=== PATIENT | male | born 1930 | race Caucasian/White ===

== ENCOUNTER 2016-07-06 15:57 | Emergency (ER) | payer MEDICARE, BC ==
[2016-07-06 16:01] VITALS: BP 152/76
--- NOTE | 2016-07-06 16:45 | EDM.PDOC ---
ED HPI GENERAL MEDICAL PROBLEM - General Chief Complaint: Gastrointestinal Problem Stated Complaint: bowel issue Time Seen by Provider: 07/06/16 16:22 Source of Information: Reports: Patient, Family History Limitations: Reports: Altered Mental Status (dementia) - History of Present Illness INITIAL COMMENTS - FREE TEXT/NARRATIVE: This patient is an 85 year old male with dementia. reports patient earlier today said he had to have a BM. She reports patient sat on the toilet but kept wiping without BM with smears on toilet paper. She reports patient says he had to go, but could not. She reports giving him to rectal suppositories. She reprots patient having BM oozing, but not BM. Patient denies having mason, dizziness, n, v, d, f, abd pain, cp, or any pain. Onset: Today Onset Date: 07/06/16 Severity: Mild Improves with: Reports: None Worsens with: Reports: None Associated Symptoms: Denies: Confusion, Chest Pain, Cough, cough w sputum, Diaphoresis, Fever/Chills, Headaches, Loss of Appetite, Malaise, Nausea/Vomiting , Rash, Seizure, Shortness of Breath, Syncope, Weakness Treatments CERTIFIED SURGICAL TECH/FIRST ASSISTANT: Reports: Other Medication(s) - Related Data Allergies Allergy/AdvReac Type Severity Reaction Status Date / Time No Known Allergies Allergy Verified 07/06/16 16:01 Home Meds: Home Meds Ascorbic Acid [Vitamin C] 1 tab PO DAILY 12/12/15 [History] Aspirin [Low Dose Aspirin EC] 81 mg PO DAILY 12/12/15 [History] Cholecalciferol (Vitamin D3) [Vitamin D3] 5,000 unit PO DAILY 12/12/15 [History] Colestipol HCl 1 gm PO BID 12/12/15 [History] Cyanocobalamin (Vitamin B12) [Vitamin B12] 1 tab PO DAILY 12/12/15 [History] Donepezil HCl [Aricept] 10 mg PO BEDTIME 12/12/15 [History] Levothyroxine Sodium [Synthroid] 125 mcg PO DAILY 12/12/15 [History] Losartan [Cozaar] 50 mg PO DAILY 12/12/15 [History] Magnesium 250 mg PO DAILY 12/12/15 [History] Oxybutynin Chloride 5 mg PO BID 12/12/15 [History] Potassium Chloride 10 meq PO BID 12/12/15 [History] Sertraline HCl [Sertraline HCl] 50 mg PO DAILY 12/12/15 [History] atorvaSTATin Calcium [Atorvastatin Calcium] 10 mg PO DAILY 12/12/15 [History] Past Medical History HEENT History: Reports: Cataract Cardiovascular History: Reports: High Cholesterol, Hypertension Respiratory History: Reports: Asthma Genitourinary History: Reports: Other (See Below) Other Genitourinary History: urinary frequency at noc Musculoskeletal History: Reports: Back Pain, Chronic, Fracture, Osteoarthritis Neurological History: Reports: Other (See Below) Other Neuro History: dementia Psychiatric History: Reports: Dementia, Depression Endocrine/Metabolic History: Reports: Hypothyroidism Oncologic (Cancer) History: Reports: Basal Cell Carcinoma - Past Surgical History HEENT Surgical History: Reports: Cataract Surgery Cardiovascular Surgical History: Reports: None Respiratory Surgical History: Reports: None Male Surgical History: Reports: None Endocrine Surgical History: Reports: None Musculoskeletal Surgical History: Reports: Other (See Below) Other Musculoskeletal Surgeries/Procedures:: hip surgery; hip fracture 2 years ago Social & Family History - Tobacco Use Smoking Status *Q: Never Smoker - Caffeine Use Caffeine Use: Reports: Coffee ED ROS GENERAL - Review of Systems Review Of Systems: See Below Constitutional: Reports: No Symptoms HEENT: Reports: No Symptoms Respiratory: Reports: No Symptoms Cardiovascular: Reports: No Symptoms Endocrine: Reports: No Symptoms GI/Abdominal: Reports: Constipation, Other (stool oozing, no BM. ) : Reports: No Symptoms Musculoskeletal: Reports: No Symptoms Skin: Reports: No Symptoms Neurological: Reports: No Symptoms Psychiatric: Reports: No Symptoms Hematologic/Lymphatic: Reports: No Symptoms Immunologic: Reports: No Symptoms ED EXAM, GI/ABD - Physical Exam Exam: See Below Exam Limited By: No Limitations General Appearance: Alert, WD/WN, No Apparent Distress Eyes: Bilateral: Normal Appearance Ears: Normal External Exam, Normal Canal, Hearing Grossly Normal, Normal TMs Nose: Normal Inspection, Normal Mucosa, No Blood Throat/Mouth: Normal Inspection, Normal Lips, Normal Teeth, Normal Gums, Normal Oropharynx, Normal Voice, No Airway Compromise Head: Atraumatic, Normocephalic Neck: Normal Inspection, Supple, Non-Tender, Full Range of Motion Respiratory/Chest: No Respiratory Distress, Lungs Clear, Normal Breath Sounds, No Accessory Muscle Use Cardiovascular: Normal Peripheral Pulses, Regular Rate, Rhythm, No Edema, No Gallop, No JVD, No Murmur, No Rub GI/Abdominal: Normal Bowel Sounds, Soft, Non-Tender, No Organomegaly, No Distention, No Abnormal Bruit, No Mass, Pelvis Stable Back Exam: Normal Inspection, Full Range of Motion. No: CVA Tenderness (L), CVA Tenderness (R) Extremities: Normal Inspection, Normal Range of Motion, Non-Tender, No Pedal Edema, Normal Capillary Refill Neurological: Alert Psychiatric: Normal Affect, Normal Mood Skin Exam: Warm, Dry, Intact, Normal Color, No Rash Lymphatic: No Adenopathy Course - Vital Signs Last Recorded V/S: Last Vital Signs Temp 98.1 F 07/06/16 15:58 Pulse 63 07/06/16 15:58 Resp 16 07/06/16 15:58 BP 152/76 H 07/06/16 15:58 Pulse Ox 96 07/06/16 15:58 - Re-Assessments/Exams Free Text/Narrative Re-Assessment/Exam: 07/06/16 17:12 Patient had fleet enema by RN, success of large BM. Patient reports he now feels better. Departure - Departure Time of Disposition: 16:42 Disposition: Home, Self-Care 01 Condition: good Clinical Impression: Constipation Qualifiers: Constipation type: unspecified constipation type Qualified Code(s): K59.00 - Constipation, unspecified - Discharge Information Instructions: Constipation, Adult, [id number] Referrals: Eliud Kaplan MD [Primary Care Provider] - Forms: ED Department Discharge Additional Instructions: Followup with your primary care provider Return to the ER for worsening of condition or any emergent concerns Increase fluids Over the counter enema as needed - Assessment/Plan Plan: PLEASE SEE RN NOTE FOR PFSH.
== END 2016-07-06 16:55 | disposition home or self-care (01) ==
LOC: CC.ED 15:57
DX: K59.00 Constipation, unspecified (principal); E78.00 Pure hypercholesterolemia, unspecified; I10 Essential (primary) hypertension; F32.9 Major depressive disorder, single episode, unspecified; E03.9 Hypothyroidism, unspecified; Z79.899 Other long term (current) drug therapy; Z79.82 Long term (current) use of aspirin
CPT/HCPCS: 99282

== ENCOUNTER 2016-09-13 09:52 | Observation (INO) | payer MEDICARE, BC ==
[2016-09-13] MEDS ORDERED: Bisacodyl 10 MG Supp RECTAL ONE (11:17)
[2016-09-13] MEDS ORDERED: Bisacodyl 10 MG Supp ONE (11:32)
[2016-09-13] MEDS ORDERED: Iopamidol 612 MG/ML 100 ML Bottle IVPUSH ONE (14:07)
[2016-09-13] MEDS ORDERED: Sodium Chloride 0.9% 1,000 ML IV SCH (15:30)
[2016-09-13] MEDS ORDERED: Morphine 2 MG/ML Syringe IVPUSH PRN (15:32)
[2016-09-13] MEDS ORDERED: Ibuprofen 200 MG Tab PO PRN (15:32)
[2016-09-13] MEDS ORDERED: Ondansetron 4 MG/2 ML SDV IV PRN (15:32)
[2016-09-13] MEDS ORDERED: Acetaminophen/HYDROcodone 325-5 MG Tab PO PRN (15:32)
[2016-09-13] MEDS ORDERED: Acetaminophen 325 MG Tab PO PRN (15:32)
[2016-09-13] MEDS ORDERED: Enoxaparin 40 MG/0.4 ML Syringe SUBCUT SCH (16:00)
[2016-09-13] MEDS: Sodium Chloride 0.9% 500 ML IV ONE ×2 (16:54→17:43)
[2016-09-13] MEDS: COLESTIPOL HCL 1 GM PO SCH (19:54)
[2016-09-13] MEDS: Oxybutynin 5 MG Tab PO SCH (19:55)
[2016-09-13] MEDS: Potassium Chloride 10 MEQ Tab.ER PO SCH (19:57)
[2016-09-13] MEDS ORDERED: Donepezil 5 MG Tab PO SCH (20:00)
[2016-09-13] MEDS ORDERED: LORazepam 2 MG/ML Syringe IVPUSH PRN (20:27)
[2016-09-14] MEDS ORDERED: Levothyroxine 125 MCG Tab PO SCH (07:00)
[2016-09-14 07:24] LABS: CHLORIDE,CL 107 mEq/L (98-106); SODIUM,NA 146 mEq/L (136-145)
[2016-09-14] MEDS: COLESTIPOL HCL 1 GM PO SCH (07:47)
[2016-09-14] MEDS: Oxybutynin 5 MG Tab PO SCH (07:48)
[2016-09-14] MEDS: Potassium Chloride 10 MEQ Tab.ER PO SCH (07:53)
[2016-09-14] MEDS ORDERED: Sertraline 25 MG Tab PO SCH (08:00)
[2016-09-14] MEDS ORDERED: Aspirin 81 MG Tab.EC PO SCH (08:00)
[2016-09-14] MEDS ORDERED: atorvaSTATin 10 MG Tab PO SCH (08:00)
[2016-09-14] MEDS ORDERED: Psyllium Husk Powder Sugar Free 5.85 GM Packet PO SCH (08:00)
[2016-09-14] MEDS ORDERED: Cholecalciferol (Vitamin D3) 1,000 Unit Tab PO SCH (08:00)
[2016-09-14] MEDS ORDERED: Cyanocobalamin (Vitamin B12) 100 MCG Tab PO SCH (08:00)
[2016-09-14] MEDS ORDERED: Losartan 25 MG Tab PO SCH (08:00)
[2016-09-14] MEDS ORDERED: Ascorbic Acid 500 MG Tab PO SCH (08:00)
[2016-09-14 08:11] VITALS: BP 130/59
--- NOTE | 2016-09-14 09:10 | PCM.DCSUM1 ---
Discharge Summary - Hospital Course HPI Initial Comments: This patient is an 86 year old male that was admitted yesterday. He was admitted for constipation, urinary urge, general malaise, elevated troponin, and renal insufficiency. The patient yesterday had a large BM and after that he reported he felt much better. The patient abd/pelvis ct was normal. Today, the patient has no complaints. He denies mason, dizziness, n, v, d, f, cp, soa, abd pain, back pain, weakness, malaise. He reports that he feels good and is ready to go home. The patient labs yesterday were sodium 141, potassium 3.4, BUN 42, CR 1.3, Troponin 0.319 and 0.317. Today his labs are sodium is 146, potassium 3.7, BUN 40, CR 1.1, and troponin 0.434. His troponin has stayed in indeterminate range. The patient has not complained of any chest pain, shortness of breath and today has no symptoms. He reports that he feels great. I do not have any old troponin labs to compare from previous visits. There are no Acute ekg changes. No ST elevation. I called [facility] and spoke to Dr. Sweeney the hospitalist. I discussed the patient case and labs with the physician. He reports that he would discharge the patient home. If there is concern of cardiac have the patient followup with his PCP for a stress test. But , this can be done on an outpatient basis. The patient can be discharged home. I will discharge the patient home with the . - Discharge Data Discharge Date: 09/14/16 Discharge Disposition: Home, Self-Care 01 Condition: Good - Patient Instructions Diet: Usual Diet as Tolerated Activity: As Tolerated Showering/Bathing: May Shower Notify Provider of: Fever, Increased Pain, Nausea and/or Vomiting - Discharge Plan Home Medications: Home Meds Ascorbic Acid [Vitamin C] 1 tab PO DAILY 12/12/15 [History] Aspirin [Low Dose Aspirin EC] 81 mg PO DAILY 12/12/15 [History] Cholecalciferol (Vitamin D3) [Vitamin D3] 5,000 unit PO DAILY 12/12/15 [History] Colestipol HCl 1 gm PO BID 12/12/15 [History] Cyanocobalamin (Vitamin B12) [Vitamin B12] 1 tab PO DAILY 12/12/15 [History] Donepezil HCl [Aricept] 10 mg PO BEDTIME 12/12/15 [History] Levothyroxine Sodium [Synthroid] 125 mcg PO DAILY 12/12/15 [History] Losartan [Cozaar] 50 mg PO DAILY 12/12/15 [History] Magnesium 250 mg PO DAILY 12/12/15 [History] Oxybutynin Chloride 5 mg PO BID 12/12/15 [History] Potassium Chloride 10 meq PO BID 12/12/15 [History] Sertraline HCl 50 mg PO DAILY 12/12/15 [History] atorvaSTATin Calcium [Atorvastatin Calcium] 10 mg PO DAILY 12/12/15 [History] Psyllium Husk/Aspartame [Metamucil Sugar Free] 1 pkt PO DAILY packet 09/14/16 [ Rx] - Discharge Summary/Plan Comment DC Time >30 min.: No Discharge Summary/Plan Comment: Followup with your primary care provider this week Return to the ER for worsening of condition or any emergent concerns Increase fiber Increase fluids - General Info Date of Service: 09/14/16 Functional Status: Reports: Pain Controlled - Review of Systems General: Reports: No Symptoms HEENT: Reports: No Symptoms Pulmonary: Reports: No Symptoms Cardiovascular: Reports: No Symptoms Gastrointestinal: Reports: No Symptoms Genitourinary: Reports: No Symptoms Musculoskeletal: Reports: No Symptoms Skin: Reports: No Symptoms Neurological: Reports: No Symptoms Psychiatric: Reports: No Symptoms - Patient Data Vitals - Most Recent: Last Vital Signs Temp 97.6 F 09/14/16 08:00 Pulse 59 L 09/14/16 08:00 Resp 16 09/14/16 08:00 BP 130/59 L 09/14/16 08:00 Pulse Ox 94 L 09/14/16 08:00 Weight - Most Recent: 185 lb I&O - Last 24 hours: Intake & Output 09/13/16 09/14/16 09/14/16 22:59 06:59 14:59 Output Total 900 425 Balance -900 -425 Lab Results - Last 24 hrs: Laboratory Results - last 24 hr 09/13/16 09/13/16 09/13/16 Range/Units 09:59 09:59 09:59 WBC 8.2 (5.0-10.0) 10^3/uL RBC 3.74 L (4.50-6.00) 10^6/uL Hgb 12.1 L (14.0-18.0) g/dL Hct 35.6 L (40.0-54.0) % MCV 95.2 H (82.0-94.0) fL MCH 32.4 H (27.0-32.0) pg MCHC 34.0 (33.0-38.0) g/dL RDW Coeff of Sudeep 13.2 (11.0-15.0) % Plt Count 149 L (150-400) 10^3/uL Neut % (Auto) (35-85) % Lymph % (Auto) (10-55) % [place] % (Auto) (0-16) % Eos % (Auto) (0-5) % Baso % (Auto) (0-3) % Neut # (Auto) (1.80-7.00) 10^3/uL Lymph # (Auto) (1.00-4.80) 10^3/uL [place] # (Auto) (0.00-0.80) 10^3/uL Eos # (Auto) (0.00-0.45) 10^3/uL Baso # (Auto) 10^3/uL Add Manual Diff Yes Neutrophils % (Manual) 70 (35-85) % Band Neutrophils % 3 (0-5) % Lymphocytes % (Manual) 16 L (21-55) % Monocytes % (Manual) 6 (2-12) % Eosinophils % (Manual) 4 (0-5) % Basophils % (Manual) 1 (0-3) % Absolute Neutrophils 5.99 (1.80-7.00) 10^3/uL Lymphocytes # (Manual) 1.31 (1.00-4.80) 10^3/uL Monocytes # (Manual) 0.49 (0.00-0.80) 10^3/uL Eosinophils # (Manual) 0.33 (0.00-0.45) 10^3/uL Basophils # (Manual) 0.08 10^3/uL Sodium 141 (136-145) mEq/L Potassium 3.4 L (3.5-5.0) mEq/L Chloride 102 (98-106) mEq/L Carbon Dioxide 34 H (21-32) mmol/L BUN 42 H (7-18) mg/dL Creatinine 1.3 (0.7-1.3) mg/dL Est Cr Clr Drug Dosing 41.34 mL/min Estimated GFR (MDRD) 52 L (>=60) mL/min Glucose 112 H (75-99) mg/dL Calcium 8.5 (8.4-10.1) mg/dL Total Bilirubin 1.3 H (0.0-1.0) mg/dL AST 27 (15-37) U/L ALT 21 (12-78) U/L Alkaline Phosphatase 62 (46-116) U/L Troponin I 0.319 H (0.00-0.06) ng/mL Total Protein 6.4 (6.4-8.2) g/dL Albumin 3.1 L (3.4-5.0) g/dL Urine Color Yellow (YELLOW) Urine Appearance Clear (CLEAR) Urine pH 5.5 (4.5-8.0) Ur Specific Neal 1.016 (1.003-1.020) Urine Protein Negative (NEGATIVE) mg/dL Urine Glucose (UA) Negative (NEGATIVE) mg/dL Urine Ketones Negative (NEGATIVE) mg/dL Urine Occult Blood Negative (NEGATIVE) Urine Nitrite Negative (NEGATIVE) Urine Bilirubin Negative (NEGATIVE) Urine Urobilinogen 0.2 (0.2-1.0) EU/dL Ur Leukocyte Esterase Negative (NEGATIVE) Urine RBC Not seen (0-5) /HPF Urine WBC Not seen (0-5) /HPF Ur Epithelial Cells Few H (NOT SEEN) /HPF 09/13/16 09/14/16 09/14/16 Range/Units 15:30 06:55 06:55 WBC 7.3 (5.0-10.0) 10^3/uL RBC 3.17 L (4.50-6.00) 10^6/uL Hgb 10.3 L (14.0-18.0) g/dL Hct 30.9 L (40.0-54.0) % MCV 97.5 H (82.0-94.0) fL MCH 32.5 H (27.0-32.0) pg MCHC 33.3 (33.0-38.0) g/dL RDW Coeff of Sudeep 13.2 (11.0-15.0) % Plt Count 131 L (150-400) 10^3/uL Neut % (Auto) 78.0 (35-85) % Lymph % (Auto) 10.2 (10-55) % [place] % (Auto) 9.9 (0-16) % Eos % (Auto) 1.8 (0-5) % Baso % (Auto) 0.1 (0-3) % Neut # (Auto) 5.66 (1.80-7.00) 10^3/uL Lymph # (Auto) 0.74 L (1.00-4.80) 10^3/uL [place] # (Auto) 0.72 (0.00-0.80) 10^3/uL Eos # (Auto) 0.13 (0.00-0.45) 10^3/uL Baso # (Auto) 0.01 10^3/uL Add Manual Diff Neutrophils % (Manual) (35-85) % Band Neutrophils % (0-5) % Lymphocytes % (Manual) (21-55) % Monocytes % (Manual) (2-12) % Eosinophils % (Manual) (0-5) % Basophils % (Manual) (0-3) % Absolute Neutrophils (1.80-7.00) 10^3/uL Lymphocytes # (Manual) (1.00-4.80) 10^3/uL Monocytes # (Manual) (0.00-0.80) 10^3/uL Eosinophils # (Manual) (0.00-0.45) 10^3/uL Basophils # (Manual) 10^3/uL Sodium 146 H (136-145) mEq/L Potassium 3.7 (3.5-5.0) mEq/L Chloride 107 H (98-106) mEq/L Carbon Dioxide 33 H (21-32) mmol/L BUN 40 H (7-18) mg/dL Creatinine 1.1 (0.7-1.3) mg/dL Est Cr Clr Drug Dosing 48.85 mL/min Estimated GFR (MDRD) > 60 (>=60) mL/min Glucose 113 H (75-99) mg/dL Calcium 8.1 L (8.4-10.1) mg/dL Total Bilirubin (0.0-1.0) mg/dL AST (15-37) U/L ALT (12-78) U/L Alkaline Phosphatase (46-116) U/L Troponin I 0.317 H 0.434 H (0.00-0.06) ng/mL Total Protein (6.4-8.2) g/dL Albumin (3.4-5.0) g/dL Urine Color (YELLOW) Urine Appearance (CLEAR) Urine pH (4.5-8.0) Ur Specific Neal (1.003-1.020) Urine Protein (NEGATIVE) mg/dL Urine Glucose (UA) (NEGATIVE) mg/dL Urine Ketones (NEGATIVE) mg/dL Urine Occult Blood (NEGATIVE) Urine Nitrite (NEGATIVE) Urine Bilirubin (NEGATIVE) Urine Urobilinogen (0.2-1.0) EU/dL Ur Leukocyte Esterase (NEGATIVE) Urine RBC (0-5) /HPF Urine WBC (0-5) /HPF Ur Epithelial Cells (NOT SEEN) /HPF Med Orders - Current: Current Medications Acetaminophen (Tylenol) 650 mg PO Q4H PRN PRN Reason: Pain (Mild 1-3)/fever Hydrocodone Bitart/Acetaminophen ([place] 325-5 Mg) 1 tab PO Q4H PRN PRN Reason: Pain (moderate 4-6) Aspirin (Halfprin) 81 mg PO DAILY [facility] Last Admin: 09/14/16 07:53 Dose: 81 mg Atorvastatin Calcium (Lipitor) 10 mg PO DAILY [facility] Last Admin: 09/14/16 07:49 Dose: 10 mg Cholecalciferol (Vitamin D3) 5,000 units PO DAILY [facility] Last Admin: 09/14/16 07:48 Dose: Not Given Donepezil HCl (Aricept) 10 mg PO BEDTIME [facility] Last Admin: 09/13/16 19:54 Dose: 10 mg Enoxaparin Sodium (Lovenox) 40 mg SUBCUT Q24H [facility] Last Admin: 09/13/16 16:54 Dose: 40 mg Ibuprofen (Motrin) 600 mg PO Q6H PRN PRN Reason: Pain (mild 1-3) Last Admin: 09/14/16 03:52 Dose: 600 mg Levothyroxine Sodium (Levothyroxine) 125 mcg PO ACBREAKFAST [facility] Last Admin: 09/14/16 06:57 Dose: 125 mcg Lorazepam (Ativan) 1 mg IVPUSH Q4H PRN PRN Reason: Anxiety Losartan Potassium (Cozaar) 50 mg PO DAILY [facility] Last Admin: 09/14/16 08:15 Dose: 50 mg Magnesium Oxide (Magnesium Oxide) 250 mg PO DAILY [facility] Last Admin: 09/14/16 07:50 Dose: Not Given Morphine Sulfate (Morphine) 2 mg IVPUSH Q2H PRN PRN Reason: Pain (severe 7-10) Non-Formulary Medication (Colestipol Hcl) 1 gm PO BID [facility] Last Admin: 09/14/16 07:47 Dose: Not Given Ondansetron HCl (Zofran) 4 mg IV Q6H PRN PRN Reason: Nausea/Vomiting Oxybutynin Chloride (Oxybutynin) 5 mg PO BID [facility] Last Admin: 09/14/16 07:48 Dose: 5 mg Potassium Chloride (Klor-Con 10) 10 meq PO BID [facility] Last Admin: 09/14/16 07:53 Dose: 10 meq Psyllium Husk (Metamucil Sugar Free) 1 pkt PO DAILY [facility] Last Admin: 09/14/16 07:53 Dose: 1 pkt Sertraline HCl (Zoloft) 50 mg PO DAILY [facility] Last Admin: 09/14/16 07:48 Dose: 50 mg Discontinued Medications Ascorbic Acid (Vitamin C) 500 mg PO DAILY [facility] Bisacodyl (Dulcolax) 10 mg RECTAL ONETIME ONE Stop: 09/13/16 11:18 Last Admin: 09/13/16 11:24 Dose: 10 mg Bisacodyl (Dulcolax) Confirm Administered Dose 10 mg .ROUTE .STK-MED ONE Stop: 09/13/16 11:33 Last Admin: 09/13/16 11:29 Dose: Not Given Cyanocobalamin (Vitamin B12) 500 mcg PO DAILY [facility] Sodium Chloride (Normal Saline) 500 mls @ 500 mls/hr IV ONETIME ONE Stop: 09/13/16 16:29 Last Admin: 09/13/16 17:43 Dose: Not Given Sodium Chloride (Normal Saline) 1,000 mls @ 75 mls/hr IV ASDIRECTED [facility] Iopamidol (Isovue-300 (61%)) 100 ml IVPUSH ONETIME ONE Stop: 09/13/16 14:08 Last Admin: 09/13/16 14:44 Dose: 100 ml - Exam General: Reports: Alert, Oriented, Cooperative Lungs: Reports: Clear to Auscultation, Normal Respiratory Effort Cardiovascular: Reports: Regular Rate, Regular Rhythm, No Murmurs GI/Abdominal Exam: Normal Bowel Sounds, Soft, Non-Tender, No Organomegaly, No Distention, No Abnormal Bruit, No Mass, Pelvis Stable Back Exam: Reports: Normal Inspection, Full Range of Motion Extremities: Normal Inspection, Normal Range of Motion, Non-Tender, No Pedal Edema, Normal Capillary Refill Skin: Reports: Warm, Dry, Intact Neurological: Reports: No New Focal Deficit Psy/Mental Status: Reports: Alert, Normal Affect, Normal Mood *Q Meaningful Use (DIS) - VTE *Q VTE Criteria *Q: - Stroke *Q Stroke Criteria *Q: - AMI *Q AMI Criteria *Q:
== END 2016-09-14 12:50 | disposition home or self-care (01) ==
LOC: CC.LAB 09:52 → CC.ACU 09:52 → CC.MS 13:20 → UNDOADMOB 13:20 → CC.MS 15:32 → UNDODISOB 09-14 12:50
PROVIDERS: ADMIT Nurse Practitioner; ATTEND General Practice
DX: N28.9 Disorder of kidney and ureter, unspecified (principal); R79.89 Other specified abnormal findings of blood chemistry; K59.00 Constipation, unspecified; F03.90 Unspecified dementia, unspecified severity, without behavioral disturbance, psychotic disturbance, mood disturbance, and anxiety; F32.9 Major depressive disorder, single episode, unspecified; E78.5 Hyperlipidemia, unspecified; E03.9 Hypothyroidism, unspecified; N40.1 Benign prostatic hyperplasia with lower urinary tract symptoms; R35.1 Nocturia; M19.90 Unspecified osteoarthritis, unspecified site; G20 Parkinson's disease; Z79.82 Long term (current) use of aspirin; Z79.899 Other long term (current) drug therapy
CPT/HCPCS: 36415; 51702; 74020; 74177; 80048; 80053; 81001; 84484; 85025; 93005; 93010; 96360; 96372; 99211; 99217; 99220; A9270; G0378; J1650; J7040; Q9967